=== PATIENT | male | born 1960 | race Caucasian/White ===

== ENCOUNTER → 2016-11-15 13:02 | Day surgery (SDC) | payer MEDICARE ==
--- NOTE | 2016-11-13 10:38 | HP ---
CC: Justo Fair MD, [facility]; Dr. Castro PREOPERATIVE HISTORY AND PHYSICAL: DATE OF PREOPERATIVE HISTORY AND PHYSICAL EXAMINATION: , 11/09/16 DATE OF ADMISSION: 11/15/16 - This patient is scheduled for same day surgery by Dr. Fair on , 11/15/16. ATTENDING SURGEON: Justo Fair MD (dictated by Tyler Cole NP) CHIEF COMPLAINT: Abdominal pain. HISTORY OF PRESENT ILLNESS: The patient is a 55-year-old male referred to Dr. Fair from Dr. Castro with complaints of right upper quadrant abdominal pain for approximately 2 to 3 months. After he ea ts, the pain is worse and he describes it as aching. It is not associated with any specific foods. He denies any nausea or vomiting, or change in the color of urine or stool. He denies any dysuria or change in bowel habits, or significant weight loss. Dr. Fair has examined the patient and revie wed diagnostic studies including LFTs which are within normal limits. The patient underwent a CAT s can of the abdomen and pelvis with p.o. and IV contrast which revealed fatty infiltration of the alex er, but a normal-appearing gallbladder and a small umbilical hernia. The patient underwent ultrasou nd of the gallbladder which revealed cholelithiasis; and, therefore, Dr. Fair has recommended lapar oscopic cholecystectomy as well as primary open umbilical hernia repair as a same day surgery proced ure. Dr. Fair discussed the nature of the surgical procedure, the relevant risks and benefits, and today I reviewed the typical same day surgery hospitalization as well as the postoperative care and recovery. The patient has had a chance to ask questions and stated that he understands the informa tion, and he will sign surgical consent on the day of surgery. PAST MEDICAL HISTORY: Significant for chronic neck and back pain. PAST SURGICAL HISTORY: Bilateral inguinal hernia repair 35 years ago and lumbar surgery in 1987. MEDICATIONS: 1. Meclizine 12.5 mg p.o. q.8 p.r.n. 2. Diazepam 5 mg at bedtime as needed. 3. Acetaminophen over the counter as needed for pain. 4. Levitra 10 mg one tablet as needed. ALLERGIES: No known drug allergies. FAMILY HISTORY: No known anesthesia complications, bleeding tendencies, or clotting disorders. SOCIAL HISTORY: He is . He smokes a pack of cigarettes per day. He denies alcohol use or o ther substance abuse. He is on disability. REVIEW OF SYSTEMS: He denies any chest pain, pressure, or palpitations. He denies any history of d eep vein thrombosis or pulmonary embolism. He denies any shortness of breath; he smokes a pack of c igarettes per day. He denies any previous anesthesia complications. He denies any other gastrointe stinal complaints other than described in history of present illness. He denies any dysuria. He de nies any bleeding tendencies, and has never received blood transfusion. PHYSICAL EXAMINATION GENERAL SURVEY: The patient is a 55-year-old male, slender, well developed, in no acute distress. VITAL SIGNS: Height 67 inches, weight 145 pounds, body mass index 22.7, blood pressure 120/66, puls e 80 and regular, respiratory rate 16, temperature 98.5 tympanic. SKIN: Warm, dry, anicteric. HEENT: Benign. Anicteric sclerae. NECK: No cervical lymphadenopathy. Limited range of motion secondary to chronic neck pain and asso ciated osteoarthritis. BACK: No CVA tenderness. LUNGS: Breath sounds bilaterally clear and equal. HEART: Regular rate and rhythm. No murmurs or rubs. ABDOMEN: Well-healed surgical scars bilateral inguinal region; minimal right upper quadrant tendern ess. Negative Dumont sign, no guarding, no organomegaly. Small umbilical hernia is appreciated. I nguinal exam as done by Dr. Fair revealed recurrent left inguinal hernia and recurrent right inguin al hernia. GENITALIA: As examined by Dr. Fair, revealed normal testicles without evidence of scrotal hernia o r masses. RECTAL: Deferred. EXTREMITIES: Warm without edema or skin ulcerations. NEUROLOGIC: Alert and oriented x3. Steady gait. IMPRESSION: 1. Symptomatic cholelithiasis. 2. Umbilical hernia without obstruction or gangrene. PLAN: Same day surgery admission to Dr. Fair's service on 11/15/16 for laparoscopic cholecystectom y and primary open umbilical hernia repair. TYLER COLE, ULTRASOUND SPECIALIST [id number]/[facility] #: [id number]
[~2016-11-15 13:02] MED LIST: Buffered Lidocaine 1% SYR 3ML* 3 ML/SYR SYRINGE INTRADERM ONE; Buffered Lidocaine 1% SYR 3ML* 3 ML/SYR SYRINGE ONE; Bupivacaine 0.25% EPI 200,000* 30 ML SDV ONE; Dexamethasone TAB* 4 MG ONE; Dexamethasone TAB* 4 MG PO ONE; Famotidine IV* 10 MG/ML 2 ML (20 mg) IV ONE; Famotidine IV* 10 MG/ML 2 ML (20 mg) ONE; Flumazenil* 0.1 MG/ML 5 ML MDV ONE; Glycopyrrolate IV* 0.2 MG/ML 1 ML VIAL ONE; KETAMINE HCL* 50 MG/ML 10 ML VIAL ONE; Midazolam* 1 MG/ML 5 ML VIAL (5 MG) ONE; Morphine INJ* 10 MG/ML 1 ML CARPUJECT IV PRN; Morphine INJ* 10 MG/ML 1 ML CARPUJECT ONE; Morphine INJ* 2 MG/ML 1 ML CARPUJECT IV PRN; Ondansetron INJ* 2 MG/ML VIAL ONE; PROCHLORPERAZINE INJ 5 MG/ML 2 ML VIAL IV PRN; PROCHLORPERAZINE INJ 5 MG/ML 2 ML VIAL ONE; Propofol* 10 MG/ML 20 ML BTL IV PUSH ONE; ceFAZolin 2 GM PREMIX (*) 2 GM/50 ML BAG IVPB ONE; fentaNYL* 50 MCG/ML 2 ML VIAL (100 MCG VIAL) IV PRN; fentaNYL* 50 MCG/ML 2 ML VIAL (100 MCG VIAL) ONE; oxyCODONE/Acetamin 5/325 MG* TAB ONE; oxyCODONE/Acetamin 5/325 MG* TAB PO PRN
--- NOTE | 2016-11-15 17:55 | SURGPN ---
Brief Operative Note - Surgery Procedures: Pre-OP Diagnoses: chronic cholecystitis, ventral hernia Post-op Diagnosis: same Procedure: Laparoscopic cholecystectomy, primary repair of ventral hernia Surgeon: Manjula Asst: Enma Clemonsthenallelya: HOLDEN Enoree EBL: minimal IVF: 1200ccLR Specimen: gallbladder Drains: none
[2016-11-15 19:19] VITALS: BP 121/77
--- NOTE | 2016-11-15 23:42 | OP ---
DATE OF OPERATION: 11/15/16 - [facility] DATE OF : 62 SURGEON: Justo Fair MD [employer] COMPENSATION CLAIMS EXAMINER: DOMINGO Quach ANESTHESIOLOGIST: Dr. Arteaga. ANESTHESIA: General. PRE-OP DIAGNOSES: Chronic cholecystitis and ventral hernia. POST-OP DIAGNOSES: Chronic cholecystitis and ventral hernia. OPERATIVE PROCEDURE: Laparoscopic cholecystectomy and open primary repair of ventral hernia. ESTIMATED BLOOD LOSS: Minimal. FLUIDS: 1200 cc of crystalloid fluid given. SPECIMEN: Gallbladder. DRAINS: None. COUNTS: Lap pad count and instrument count correct at the end of the procedure. DESCRIPTION OF PROCEDURE: The patient was identified in the preoperative area, marked and consent signed. He was brought back to the operating room, placed on the operating table in supine position. Preoperative antibiotics were given. Sequential devices were placed on bilateral lower extremity. General anesthesia was induced and the patient's abdomen was prepped and draped in the standard surgical fashion. A time-out was performed. A supraumbilical incision was made overlying the hernia. This was dissected free around the entire neck of the hernia, which appeared to be approximately 2 cm. The sac was entered and contents were identified. These were consistent with omentum. This was pushed back into the abdomen and a 12-mm port was then placed into the abdomen, which was allowed to insufflate to a pressure of 15 mmHg. The patient tolerated the insufflation well. Laparoscope was inserted through this and additional trocars were placed in the following position, a 12- mm in the subxiphoid and two 5-mm along the right costal margin. Table was repositioned and the fundus of the gallbladder was identified. This was retracted anteriorly. The liver was large and the gallbladder was as well. We were able to take the peritoneal attachments off the medial aspect of the gallbladder and off the lateral aspect. Node of Calot was identified. This was peeled down posteriorly. We never did appreciate the common bile duct, but the cystic duct was long and isolated. However, we continued our dissection posteriorly just to ensure that we were in the right plane. The gallbladder was bulbous and somewhat intrahepatic. The cystic duct was isolated. This was doubly clipped and ligated, and we dissected more of the body of the gallbladder at the posterior aspect. Next, the cystic duct was isolated. Decision was made to triply clip and ligate this. This was without difficulty and the gallbladder was then removed from the liver bed and placed in an endoscopic retrieval bag, placed over the liver. Suction irrigation was then used. We did open the gallbladder with small pin hole and only bile was expressed, no stones. We irrigated and suctioned out all this fluid. Next, the camera was shifted to lateral port and the gallbladder was brought out through the periumbilical port site. Next, the abdomen was allowed to collapse. The ventral defect was again isolated and 3 interrupted 0 Surgipro sutures were utilized to close this taking full thickness bites. The abdomen was allowed to insufflate again and camera was placed to ensure that we did not take any intraabdominal contents. Hemostasis was excellent. There had been no bile or bleeding at the cystic duct stump or cystic artery stump earlier and then the abdomen was allowed to collapse one more time. Trocars were removed and all 4 skin incisions were reapproximated with 4-0 Monocryl subcuticular sutures followed by Steri-Strips and sterile dressing. The patient tolerated the procedure well, was woken up in the OR, and transferred to the PACU in stable condition. CC: Dr. Castro; [facility] * [id number]/[facility] #: [id number] MTDZoe
== END | disposition home or self-care (01) ==
LOC: OR 13:02
PROVIDERS: ATTEND Surgery
DX: K80.10 Calculus of gallbladder with chronic cholecystitis without obstruction (principal); K43.9 Ventral hernia without obstruction or gangrene; F17.210 Nicotine dependence, cigarettes, uncomplicated
CPT/HCPCS: 88304; A9270-GY; J0690; J0780; J2250; J2270; J2405; J2704; J3010; J8540

== ENCOUNTER → 2017-01-03 07:38 | Day surgery (SDC) | payer MEDICARE ==
[~2017-01-03 07:38] MED LIST changes: +Acetaminophen IV 1GM/100ML * 100 ML IVPB ONE; +Acetaminophen IV 1GM/100ML * 100 ML ONE; -Buffered Lidocaine 1% SYR 3ML* 3 ML/SYR SYRINGE ONE; +Dexamethasone IV* 4 MG/ML 1 ML (4 MG) ONE; -Dexamethasone TAB* 4 MG ONE; -Dexamethasone TAB* 4 MG PO ONE; +DiMENhydriNATE IV* 50 MG/ML VIAL IV PUSH PRN; -Flumazenil* 0.1 MG/ML 5 ML MDV ONE; -Glycopyrrolate IV* 0.2 MG/ML 1 ML VIAL ONE; +HYDROmorphone INJ* 1 MG/ML CARPUJECT SYRINGE IV SLOW PU ONE; +HYDROmorphone INJ* 1 MG/ML CARPUJECT SYRINGE ONE; -KETAMINE HCL* 50 MG/ML 10 ML VIAL ONE; +Ketorolac INJ* 30 MG/ML 1 ML VIAL ONE; +Lidocaine 2% PF * 5 ML VIAL ONE; -Morphine INJ* 10 MG/ML 1 ML CARPUJECT IV PRN; -Morphine INJ* 10 MG/ML 1 ML CARPUJECT ONE; -Morphine INJ* 2 MG/ML 1 ML CARPUJECT IV PRN; -PROCHLORPERAZINE INJ 5 MG/ML 2 ML VIAL IV PRN; -PROCHLORPERAZINE INJ 5 MG/ML 2 ML VIAL ONE; +Rocuronium* 10 MG/ML VIAL ONE; +Succinylcholine* 20 MG/ML 10 ML VIAL ONE; -fentaNYL* 50 MCG/ML 2 ML VIAL (100 MCG VIAL) IV PRN; +oxyCODONE TAB* 5 MG TAB ONE; -oxyCODONE/Acetamin 5/325 MG* TAB ONE; -oxyCODONE/Acetamin 5/325 MG* TAB PO PRN
--- NOTE | 2017-01-03 10:27 | SURGPN ---
Brief Operative Note - Surgery Procedures: Pre-OP Diagnoses: Bilateral inguinal hernia Post-op Diagnosis: same Procedure: Laparoscopic bilateral hernia repair with mesh- recurrent Surgeon: Manjula Asst: Enma Anethesia: HOLDEN Kaplan EBL: minimal IVF: 1300cc LR Specimen: none Drains: none
[2017-01-03] MEDS: HYDROmorphone INJ* 1 MG/ML CARPUJECT SYRINGE IV PRN ×5 (10:52→11:13)
[2017-01-03] MEDS: oxyCODONE TAB* 5 MG TAB PO PRN ×2 (11:13→11:22)
[2017-01-03 12:16] VITALS: BP 114/69
--- NOTE | 2017-01-04 01:38 | OP ---
DATE OF OPERATION: 01/03/17 - [facility] DATE OF : 62 SURGEON: Justo Fair MD LENS GRINDER: DOMINGO Burgos ANESTHESIOLOGIST: Dr. Kaplan. ANESTHESIA: General. PRE-OP DIAGNOSIS: Recurrent bilateral inguinal hernias. POST-OP DIAGNOSIS: Recurrent bilateral inguinal hernias. OPERATIVE PROCEDURE: Laparoscopic bilateral inguinal hernia repair with mesh. BLOOD LOSS: Minimal. FLUIDS: 1300 cc of crystalloid fluid given. DRAINS: None. COUNTS: Lap pad count, instrument count correct at the end of the procedure. DESCRIPTION OF PROCEDURE: Mr. Ortiz was identified in the preoperative area, marked, and brought to the operating room, placed in the operating table in supine position. Preoperative antibiotics had been given. Sequential devices were placed on bilateral lower extremities. General anesthesia was induced. The patient's abdomen was prepped and draped in standard surgical fashion and time-out was performed. An infraumbilical incision was made. This was deepened down to the rectus pillar on the left, which was incised and the pillar retracted laterally and entry into the preperitoneal space was made. Finger dissection was utilized onto the pubic symphysis clearing away the preperitoneal plane and a 12-mm trocar was then inserted. The preperitoneal plane was then allowed to insufflate to a pressure of 12 mmHg. The patient tolerated the insufflation well. Laparoscope was inserted through this and there was some blunt dissection carried out with a camera to open up this space. Additional 5 mm trocar was then placed in the lower midline and attention was then turned towards the pubic symphysis. This was cleared off along with the Jus's ligament on the right. The epigastric vessels were identified and maintained anteriorly. A large direct hernia was identified. This had a crossing vessel that did not appear to be the epigastric vessel but rather a branch off this. This was maintained. The dissection was carried out on either side of this vessel to reduce the hernia. Attention was then turned towards the lateral aspect. This was gently swept and Bogros space was opened up. In doing this, we did cause a rent in the peritoneum. This was clipped with 5 mm clip detective sergeant for continuity. The spermatic structures were identified and kept safely from dissection. We did clear off a small area of peritoneum that extended into this portion of the indirect space. The femoral area space was free of any defect. The external iliacs were identified. Attention was then turned towards the left side. Similar dissection was carried out and a direct hernia was again identified. We cleared off the Bogros space and again cleared off the peritoneum that was extended up towards the indirect space. Once this peritoneum was retracted posteriorly, attention was then towards placing meshes. The mesh was first placed on the right side. This was a Bard 3D max mesh, medium. It was tacked to just about pubic symphysis and also on Jus's ligament and also laterally as well as along the rectus muscle. It covered the full myopectineal orifice and we placed a similar mesh on the left side. The meshes showed no wrinkling and they were not taut either. The preperitoneal plane was allowed to collapse. Trocars were removed under direct vision. There was pneumoperitoneum and decision was made to perform a laparoscopy. Posterior fascia was cut and entry to the abdominal cavity was made. The blunt cannula was then inserted and the abdomen was allowed to insufflate to a pressure of 12 mmHg. The patient was placed in a Trendelenburg position. Review of the left inguinal space showed full coverage with peritoneum, we could see the mesh behind this and it showed no wrinkling. Review of the right side showed a small rent in the peritoneum that we closed with clip detective sergeant but it had extended somewhat exposing the mesh at a 1 cm space. A 5 mm trocar was then inserted through the same previous skin incisions and this peritoneum was reapproximated with 5-0 clip detective sergeant. The abdomen was allowed to collapse. The trocars were removed under direct vision. Posterior fascia was closed with 2-0 Polysorb suture and the anterior fascia closed with 0 Polysorb suture. The wound was irrigated and Marcaine injected and all 3 skin incisions were reapproximated with 4-0 Monocryl subcuticular sutures. Steri-strips and sterile dressings were applied. The patient tolerated the procedure well and was woken up in the OR and transferred to the PACU in stable condition. CC: Dr. Uli Castro; [facility]* [id number]/[facility] #: [id number] DOREEN
== END | disposition home or self-care (01) ==
LOC: OR 07:38
PROVIDERS: ATTEND Surgery
DX: K40.21 Bilateral inguinal hernia, without obstruction or gangrene, recurrent (principal); Z87.891 Personal history of nicotine dependence
CPT/HCPCS: A9270-GY; C1776; C1781; J0330; J0690; J1100; J1170; J1885; J2250; J2405; J2704; J3010

== ENCOUNTER 2017-01-16 10:45 | Emergency (ER) | payer MEDICARE ==
[2017-01-16] MEDS ORDERED: Ibuprofen TAB* 600 MG PO ONE (12:51)
[2017-01-16] MEDS ORDERED: HYDROcodone/ACETAMIN 5-325 MG* 1 TAB PO ONE (12:51)
--- NOTE | 2017-01-16 13:15 | RAD ---
HISTORY: Pain erythema of left midfoot COMPARISONS: None VIEWS: 3, Frontal, lateral, and oblique views of the left foot FINDINGS: BONE DENSITY: Normal. BONES: There is no displaced fracture. JOINTS: There is no arthropathy. ALIGNMENT: There is no dislocation. SOFT TISSUES: Unremarkable. OTHER FINDINGS: None. IMPRESSION: NO ACUTE OSSEOUS INJURY. IF SYMPTOMS PERSIST, RECOMMEND REPEAT IMAGING.
[2017-01-16 13:25] LABS: Hematocrit 39 % (42-52); Hemoglobin 13.1 g/dl (14.0-18.0); Mean Corpuscular HGB Conc 34 g/dl (31-36); Mean Corpuscular Hemoglobin 30 pg (27-31); Mean Corpuscular Volume 88 fL (80-94); Mean Platelet Volume 7 um3 (7.4-10.4); Red Blood Count 4.41 10^6/ul (4.0-5.4); Red Cell Distribution Width 12 % (10.5-15); White Blood Count 10.2 10^3/ul (3.5-10.8)
[2017-01-16 13:45] LABS: Albumin 3.8 g/dL (3.2-5.2); BUN/Creatinine Ratio 17.7 (8-20); C Reactive Protein 27.07 mg/L (< 5.00); Calcium 8.9 mg/dL (8.6-10.3); EGFR African American 104.6 (>60); EGFR Non-African American 81.3 (>60); Globulin 2.8 g/dL (2-4); Potassium 4.4 mmol/L (3.5-5.0); Total Bilirubin 0.5 mg/dL (0.2-1.0); Total Protein 6.6 g/dL (6.4-8.9); Uric Acid 3.9 mg/dL (4.4-7.6)
--- NOTE | 2017-01-16 14:18 | ED ---
Ayaan Raymond Billy, scribed for Bradford Llamas MD on 01/16/17 at 1246 . Lower Extremity - HPI Summary HPI Summary: Patient is a 56 year-old male coming to [facility] for evaluation of left foot pain. The pain, swelling, and redness if located over the dorsum of the left foot; pain severity is 8/10. He reports that the symptoms began last night. Pain is worse with movement of the toes. He has tried resting and elevating the foot as well as applying heat and ice, without any improvement. Denies any pain in the left calf or knee. Denies any known injury or trauma. Patient had a hernia repair surgery last week. Patient tends to walk around the house without shoes. Denies history of gout. - History of Current Complaint Chief Complaint: EDExtremityLower Stated Complaint: SURGERY LAST WEEK , FOOT NOW SWELLING AND RED Time Seen by Provider: 01/16/17 12:36 Hx Obtained From: Patient Mechanism Of Injury: Unknown Onset of Pain: Hours Severity Initially: Moderate Severity Currently: Moderate Pain Intensity: 8 Pain Scale Used: 0-10 Numeric Timing: Constant Location: Is Discrete @ - dorsum of left foot Associated Signs And Symptoms: Positive: Swelling, Redness Aggravating Factor(s): Movement Alleviating Factor(s): Nothing Able to Bear Weight: Yes - Allergies/Home Medications Allergies/Adverse Reactions: Allergies Allergy/AdvReac Type Severity Reaction Status Date / Time No Known Allergies Allergy Verified 01/03/17 07:43 PMH/Surg Hx/FS Hx/Imm Hx Endocrine/Hematology History: Denies: Hx Diabetes Cardiovascular History: Denies: Hx Hypertension, Other Cardiovascular Problems/Disorders Respiratory History: Denies: Other Respiratory Problems/Disorders GI History: Reports: Hx Hiatal Hernia Denies: Other GI Disorders Musculoskeletal History: Reports: Hx Arthritis - all over Denies: Other Musculoskeletal History Sensory History: Reports: Hx Contacts or Glasses - glasses Denies: Hx Hearing Aid Opthamlomology History: Reports: Hx Contacts or Glasses - glasses Neurological History: Denies: Other Neuro Impairments/Disorders - Surgical History Surgery Procedure, Year, and Place: Bilat Inguinal hernias repairs 25-30 years ago. 2 herniated disc removed and bone from hip fused in spine [id number]. eye surgery as a child. hital hernia, gallbladder, 11/2016, [facility] Hx Anesthesia Reactions: No Infectious Disease History: No Infectious Disease History: Denies: Traveled Outside the [place] in Last 30 Days - Family History Family History: No family history of malignant hypertherima or anesthesia reaction. - Social History Alcohol Use: None Substance Use Type: Reports: None Smoking Status (MU): Former Smoker Amount Used/How Often: 1 ppd Have You Smoked in the Last Year: Yes Review of Systems Negative: Fever Positive: Other - left foot pain and swelling All Other Systems Reviewed And Are Negative: Yes Physical Exam Triage Information Reviewed: Yes Vital Signs On Initial Exam: Initial Vitals Temp Pulse Resp BP Pulse Ox 98.1 F 77 18 119/59 99 01/16/17 10:54 01/16/17 10:54 01/16/17 10:54 01/16/17 10:54 01/16/17 10:54 Vital Signs Reviewed: Yes Appearance: Positive: Well-Appearing, No Pain Distress Skin: Positive: Warm, Erythema @ - dorsum of the left foot Head/Face: Positive: Normal Head/Face Inspection Eyes: Positive: EOMI, HUNTER Neck: Positive: Supple, Nontender Respiratory/Lung Sounds: Positive: Clear to Auscultation, Breath Sounds Present Cardiovascular: Positive: RRR, Pulses are Symmetrical in both Upper and Lower Extremities Abdomen Description: Positive: Nontender, Soft Musculoskeletal: Positive: Strength/ROM Intact, Pain @ - Pain in the plantar surface of foot and with active ROM. No pain in the left calf, behind the knee, or in the upper leg. Neurological: Positive: Normal, Sensory/Motor Intact, Alert, Oriented to Person Place, Time Psychiatric: Positive: Affect/Mood Appropriate Diagnostics - Vital Signs Vital Signs Temp Pulse Resp BP Pulse Ox 01/16/17 10:54 98.1 F 77 18 119/59 99 - Laboratory Lab Results: Lab Results 01/16/17 01/16/17 01/16/17 Range/Units 13:14 13:14 13:14 WBC 10.2 (3.5-10.8) 10^3/ul RBC 4.41 (4.0-5.4) 10^6/ul Hgb 13.1 L (14.0-18.0) g/dl Hct 39 L (42-52) % MCV 88 (80-94) fL MCH 30 (27-31) pg MCHC 34 (31-36) g/dl RDW 12 (10.5-15) % Plt Count 175 (150-450) 10^3/ul MPV 7 L (7.4-10.4) um3 Neut % (Auto) 68.6 (38-83) % Lymph % (Auto) 18.2 L (25-47) % Upton % (Auto) 11.5 H (1-9) % Eos % (Auto) 1.1 (0-6) % Baso % (Auto) 0.6 (0-2) % Absolute Neuts (auto) 7.0 (1.5-7.7) 10^3/ul Absolute Lymphs (auto) 1.9 (1.0-4.8) 10^3/ul Absolute Monos (auto) 1.2 H (0-0.8) 10^3/ul Absolute Eos (auto) 0.1 (0-0.6) 10^3/ul Absolute Basos (auto) 0.1 (0-0.2) 10^3/ul Absolute Nucleated RBC 0 10^3/ul Nucleated RBC % 0 INR (Anticoag Therapy) 0.94 (0.89-1.11) APTT 30.4 (26.0-36.3) seconds Sodium 136 (133-145) mmol/L Potassium 4.4 (3.5-5.0) mmol/L Chloride 103 (101-111) mmol/L Carbon Dioxide 30 (22-32) mmol/L Anion Gap 3 (2-11) mmol/L BUN 17 (6-24) mg/dL Creatinine 0.96 (0.67-1.17) mg/dL Est GFR ( Amer) 104.6 (>60) Est GFR (Non-Af Amer) 81.3 (>60) BUN/Creatinine Ratio 17.7 (8-20) Glucose 98 (70-100) mg/dL Lactic Acid (0.5-2.0) mmol/L Uric Acid 3.9 L (4.4-7.6) mg/dL Calcium 8.9 (8.6-10.3) mg/dL Total Bilirubin 0.50 (0.2-1.0) mg/dL AST 11 L (13-39) U/L ALT 7 (7-52) U/L Alkaline Phosphatase 73 (34-104) U/L C-Reactive Protein 27.07 H (< 5.00) mg/L Total Protein 6.6 (6.4-8.9) g/dL Albumin 3.8 (3.2-5.2) g/dL Globulin 2.8 (2-4) g/dL Albumin/Globulin Ratio 1.4 (1-3) 03//17 Range/Units 13:14 WBC (3.5-10.8) 10^3/ul RBC (4.0-5.4) 10^6/ul Hgb (14.0-18.0) g/dl Hct (42-52) % MCV (80-94) fL MCH (27-31) pg MCHC (31-36) g/dl RDW (10.5-15) % Plt Count (150-450) 10^3/ul MPV (7.4-10.4) um3 Neut % (Auto) (38-83) % Lymph % (Auto) (25-47) % Upton % (Auto) (1-9) % Eos % (Auto) (0-6) % Baso % (Auto) (0-2) % Absolute Neuts (auto) (1.5-7.7) 10^3/ul Absolute Lymphs (auto) (1.0-4.8) 10^3/ul Absolute Monos (auto) (0-0.8) 10^3/ul Absolute Eos (auto) (0-0.6) 10^3/ul Absolute Basos (auto) (0-0.2) 10^3/ul Absolute Nucleated RBC 10^3/ul Nucleated RBC % INR (Anticoag Therapy) (0.89-1.11) APTT (26.0-36.3) seconds Sodium (133-145) mmol/L Potassium (3.5-5.0) mmol/L Chloride (101-111) mmol/L Carbon Dioxide (22-32) mmol/L Anion Gap (2-11) mmol/L BUN (6-24) mg/dL Creatinine (0.67-1.17) mg/dL Est GFR ( Amer) (>60) Est GFR (Non-Af Amer) (>60) BUN/Creatinine Ratio (8-20) Glucose (70-100) mg/dL Lactic Acid 0.6 (0.5-2.0) mmol/L Uric Acid (4.4-7.6) mg/dL Calcium (8.6-10.3) mg/dL Total Bilirubin (0.2-1.0) mg/dL AST (13-39) U/L ALT (7-52) U/L Alkaline Phosphatase (34-104) U/L C-Reactive Protein (< 5.00) mg/L Total Protein (6.4-8.9) g/dL Albumin (3.2-5.2) g/dL Globulin (2-4) g/dL Albumin/Globulin Ratio (1-3) Result Diagrams: 01/16/17 13:14 01/16/17 13:14 Lab Statement: Any lab studies that have been ordered have been reviewed, and results considered in the medical decision making process. - Radiology Left Foot X-ray Xray Interpretation: No Acute Changes Radiology Interpretation Completed By: Radiologist Re-Evaluation - Re-Evaluation First Eval Re-Evaluation Time: 14:06 Change: Improved Lower Extremity Course/Dx - Course Assessment/Plan: DISCUSSED RESULTS IN ED. WILLTREAT INFLAMMATORY PROCESS. RX KEFLEX AND NORCO. F/U PMD; RETURN IF WORSE. DISCHARGE HOME STABLE. - Diagnoses Provider Diagnoses: Foot swelling, Foot pain, Foot erythema Discharge - Discharge Plan Condition: Stable Disposition: HOME Prescriptions: Cephalexin CAP* [Keflex CAP*] 500 mg PO QID #40 cap HYDROcodone/ACETAMIN 5-325 MG* [Lowell 5-325 TAB*] 1 tab PO Q4H PRN #20 tab MDD 6 PRN Reason: Pain Referrals: Josh Castro MD [Primary Care Provider] - Additional Instructions: FOLLOW UP WITH YOUR DOCTOR. THE REDNESS AND SWELLING OF YOUR LEFT FOOT WILL BE TREATED AN INFLAMMATORY PROCESS. POSSIBLE CAUSES INCLUDE TENDON STRAIN AND INFECTION. WEAR ARCH SUPPORTS. ICE AND ELEVATE. IBUPROFEN 600MG EVERY 6 HOURS WITH FOOD. KEFLEX (ANTIBIOTIC) DIRECTED. RETURN TO THE EMERGENCY DEPARTMENT FOR ANY WORSENING OF YOUR CONDITION; PAIN, FEVER, CALF PAIN, YOU FEEL ILL OR QUESTIONS OR CONCERNS. The documentation as recorded by the Ayaan cline Billy accurately reflects the service I personally performed and the decisions made by , Bradford Llamas MD.
[2017-01-16] MEDS ORDERED: Cephalexin CAP* 500 MG PO ONE (14:19)
[2017-01-16 14:37] VITALS: BP 116/62
== END 2017-01-16 14:34 | disposition home or self-care (01) ==
LOC: ED 10:45
DX: M79.672 Pain in left foot (principal); L53.9 Erythematous condition, unspecified; R60.0 Localized edema; Z87.891 Personal history of nicotine dependence
CPT/HCPCS: 36415; 80053; 83605; 84550; 85025; 85610; 85730; 86140; 99282; A9270-GY

== ENCOUNTER 2018-08-05 16:00 | Emergency (ER) | payer MEDICARE ==
--- OUTSIDE RECORDS SUMMARY | 2018-08-05 16:30 | XMS REPORT | Continuity of Care Document ---
:1960 External Reference #:[id number] Author Name [facility] Address [address] [place] [address] Care Team Providers Name Role Phone Josh Castro MD Care Team Information [employer] Unavailable Josh Csatro MD Primary Care Physician Unavailable Payers Type Date Identification Numbers Payment Provider Subscriber Policy Number: [id number] Medicare Kendy Ortiz PayID: [id number] [address] [place] [address] Advance Directives Description No Information Available Problems Description No Information Family History Date Family Member(s) Problem(s) Comments Father due to Stroke () - 81 Mother 75 First Son 24 Second Son 21 First Daughter 26 Social History Type Date Description Comments Sex Unknown Marital Status Legal Status: ETOH Use Denies alcohol use Tobacco Use Start: Unknown Heavy tobacco smoker (more than 10 cigarettes/day) Smoking Status Reviewed: 07/26/18 Heavy tobacco smoker (more than 10 cigarettes/day) Allergies, Adverse Reactions, Alerts Description No Known Drug Allergies Medications Medication Date Status Form Strength Qnty SIG Indications Ordering Provider Cyclobenzaprine Active Tablets 5mg 90tabs 1 tab by M50.30 Matthew , HCL 018 mouth Ahmad M., three M.D. times a day as needed G47.00 M54.5 Zofran Odt 10/23/2017 Active Tablets 8mg 90tabs 1 by R11.0 Matthew, Dispers mouth Ahmad every 6 M., M.D. hours as needed Miralax 02/22/2018 - Hx Powder 3350NF 1020unit 1-2 caps K59.00 Matthew, 07/26/2018 s by mouth Ahmad every M., M.D. day Cyclobenzaprine 10/23/2017 - Hx Tablets 10mg 90tabs 1 tab by M50.30 Matthew, HCL 07/26/2018 mouth Ahmad three M. MEmmieD. times a day as needed for muscle spasms G47.00 M54.5 Meclizine HCL 10/15/2017 - Hx Tablets 25mg 90tabs 1 by mouth R42 Matthew , Ahmad 07/26/2018 every 8 hours Crystal Hughes. as needed Zofran 10/15/2017 - Hx Tablets 8mg 90tabs tab one by R11.0 Matthew, Ahmad 10/23/2017 mouth three M.EllenDEmmie times a day as needed Cialis 05/02/2016 - Hx Tablets 20mg 14tabs 1 tab by N40.1 Matthew, Ahmad 05/02/2016 mouth every M., M.DEmmie day as needed N52.9 Cialis 05/02/2016 - Hx Tablets 5mg 30tabs 1 tab by mouth N40.1 Matthew, Ahmad 05/04/2016 every day Susana Hughes N52.9 Diazepam 04/28/2016 - Hx Tablets 5mg 30tabs 1 tab by mouth M50.30 Matthew , Ahmad 10/23/2017 every night Susana Hughes Viagra 04/28/2016 - Hx Tablets 100mg 10tabs 1 tab by mouth N52.9 Matthew , mad 05/02/2016 every day as Susana Hughes needed Immunizations Description No Information Available Vital Signs Date Vital Result Comment 07/26/2018 4:04pm BP Systolic 110 mmHg BP Diastolic 72 mmHg Height 67 inches 5'7" Weight 159.00 lb BMI (Body Mass Index) 24.9 kg/m2 Heart Rate 86 /min Body Temperature 98.2 F Respiratory Rate 20 /min 02/22/2018 11:08am BP Systolic 118 mmHg BP Diastolic 60 mmHg Height 67 inches 5'7" Weight 164.00 lb BMI (Body Mass Index) 25.7 kg/m2 Heart Rate 89 /min Respiratory Rate 16 /min 10/23/2017 10:48am BP Systolic 124 mmHg BP Diastolic 62 mmHg Height 67 inches 5'7" Weight 164.00 lb BMI (Body Mass Index) 25.7 kg/m2 Heart Rate 99 /min Respiratory Rate 18 /min 10/15/2017 10:49am BP Systolic 124 mmHg BP Diastolic 62 mmHg Height 67 inches 5'7" Weight 159.00 lb BMI (Body Mass Index) 24.9 kg/m2 Heart Rate 80 /min Respiratory Rate 18 /min 11/23/2016 1:35pm BP Systolic 120 mmHg BP Diastolic 80 mmHg Height 67 inches 5'7" Weight 143.00 lb BMI (Body Mass Index) 22.4 kg/m2 Heart Rate 83 /min Respiratory Rate 18 /min 10/31/2016 2:04pm BP Systolic 130 mmHg BP Diastolic 68 mmHg Height 67 inches 5'7" Weight 149.00 lb BMI (Body Mass Index) 23.3 kg/m2 Heart Rate 67 /min Respiratory Rate 18 /min 05/23/2016 10:11am BP Systolic 128 mmHg BP Diastolic 64 mmHg Height 67 inches 5'7" Weight 144.00 lb BMI (Body Mass Index) 22.6 kg/m2 Heart Rate 74 /min Respiratory Rate 20 /min 05/12/2016 9:44am BP Systolic 118 mmHg BP Diastolic 64 mmHg Height 67 inches 5'7" Weight 141.00 lb BMI (Body Mass Index) 22.1 kg/m2 Heart Rate 74 /min Respiratory Rate 19 /min 04/28/2016 10:36am BP Systolic 112 mmHg BP Diastolic 66 mmHg Height 67 inches 5'7" Weight 148.00 lb BMI (Body Mass Index) 23.2 kg/m2 Heart Rate 84 /min Respiratory Rate 17 /min Results Test Date Facility Test Result H/L Range Note Laboratory test 04/02/2018 [facility] SEE RESULT 1, 2 finding BELOW Ua RFX Micro & 02/01/2018 [place] Urine Color YELLOW Yellow 3 Culture II Urine Clarity CLEAR Clear Urine Glucose - Dipstick NEGATIVE mg/dL Negative Urine Bilirubin - Dipstick NEGATIVE Negative Urine Ketone NEGATIVE mg/dL Negative Urine Specific Poston <=1.005 Low 1.010-1.030 Urine Blood NEGATIVE Negative Urine PH 6.0 Low 6.5-7.5 Urine Protein - Dipstick NEGATIVE mg/dL Negative Urine Urobilinogen - Dipstick 0.2 E.U./dL 0.2-1.0 Urine Nitrite - Dipstick NEGATIVE Negative Urine Leuk Esterase NEGATIVE Negative Source: URINE, CLEAN CAT <SEE NOTE> 4 Drugs Of Abuse-Urine Screen 02/01/2018 [place] Amphetamines (Urine) Negative 7 Barbiturates (Urine) Negative Benzodiazepines (Urine) Negative Cannabinoids (Urine) Negative Cocaine Metabolite (Urine) Negative Methadone (Urine) Negative Opiates (Urine) Negative Urine Cutoffs * 5 CBS W/Automated Diff 02/01/2018 [place] White Blood Count 8.0 K/uL 3.4- 10.5 Red Blood Count 5.07 M/uL 4.20-5.80 Hemoglobin 15.5 gm/dL 12.8-17.0 Hematocrit 45.6 % 38.0-48.0 Mean Cell Volume 89.9 fl 80.0-96.0 Mean Corpuscular HGB 30.6 pg 27.0-33.0 Mean Corpuscular HGB Conc 34.0 g/dL 31.7-36.0 Platelet Count 152 K/uL Low 155-360 Red Cell Distri Width SD 43.5 fl 36-51 Red Cell Distri Width %CV 13.4 % 11.6-15.8 Mean Platelet Volume 9.9 fL 6.6-10.6 Neut% 62.4 % 33.0-73.0 Lymph % 22.7 % 20.0-42.0 [place] % 12.7 % High 0.0-10.0 Eo% 1.8 % 0.0-6.6 Bas% 0.4 % 0.0-1.1 Neut# 4.97 K/uL 1.8-7.0 Lymph # 1.81 K/uL 1.0-4.0 [place] # 1.01 K/uL High 0.0-0.8 Eos # 0.14 K/uL 0.0-0.5 Baso # 0.03 K/uL 0.0-0.1 PSA Free And Total 11/23/2016 [facility] PSA Total 0.98 ng/mL <=3.5 6 PSA Free 0.5 ng/mL PSA Free/Total See Comment ratio 7 CBC Auto Diff 10/31/2016 [facility] White Blood Count 10.4 10^3/uL 3.5-10.8 Red Blood Count 5.02 10^6/uL 4.0-5.4 Hemoglobin 15.2 g/dL 14.0-18.0 Hematocrit 45 % 42-52 Mean Corpuscular Volume 90 fL 80-94 Mean Corpuscular Hemoglobin 30 pg 27-31 Mean Corpuscular HGB Conc 34 g/dL 31-36 Red Cell Distribution Width 13 % 10.5-15 Platelet Count 154 10^3/uL 150-450 Mean Platelet Volume 9 um3 7.4-10.4 Abs Neutrophils 7.7 10^3/uL 1.5-7.7 Abs Lymphocytes 1.8 10^3/uL 1.0-4.8 Abs Monocytes 0.6 10^3/uL 0-0.8 Abs Eosinophils 0.1 10^3/uL 0-0.6 Abs Basophils 0.1 10^3/uL 0-0.2 Abs Nucleated RBC 0 10^3/uL Granulocyte % 74.7 % 38-83 Lymphocyte % 17.2 % Low 25-47 Monocyte % 6.2 % 1-9 Eosinophil % 0.7 % 0-6 Basophil % 1.2 % 0-2 Nucleated Red Blood Cells % 0 Comp Metabolic Panel 10/31/2016 [facility] Sodium 139 mmol/L 133- 145 Potassium 4.2 mmol/L 3.5-5.0 Chloride 103 mmol/L 101-111 Co2 Carbon Dioxide 32 mmol/L 22-32 Anion Gap 4 mmol/L 2-11 Glucose 99 mg/dL 70-100 Blood Urea Nitrogen 11 mg/dL 6-24 Creatinine 1.06 mg/dL 0.67-1.17 BUN/Creatinine Ratio 10.4 8-20 Calcium 9.6 mg/dL 8.6-10.3 Total Protein 6.4 g/dL 6.4-8.9 Albumin 4.2 g/dL 3.2-5.2 Globulin 2.2 g/dL 2-4 Albumin/Globulin Ratio 1.9 1-3 Total Bilirubin 0.50 mg/dL 0.2-1.0 Alkaline Phosphatase 65 U/L 34-104 Alt 8 U/L 7-52 Ast 17 U/L 13-39 Egfr Non- 72.8 >60 Egfr 93.6 >60 8 Laboratory test finding 10/31/2016 [facility] Amylase 37 U/L 29-103 9 Lipase 11 U/L 11.0-82.0 10 Erythrocyte Sed Rate 10 mm/Hr 0-20 11 Laboratory test 05/12/2016 [facility] TSH (Thyroid 0.49 mcIU/mL 0.34 -5.60 12 finding Stim Horm) Vitamin D Total 25(Oh) 39.4 ng/mL 30-50 13 Lipid Profile 05/12/2016 [facility] Triglycerides 105 mg/dL 14 (Trig/Chol/HDL) Cholesterol 174 mg/dL 15 HDL Cholesterol 34.0 mg/dL 16 LDL Cholesterol 119 mg/dL 17 Comp Metabolic Panel 05/12/2016 [facility] Sodium 136 mmol/L 133- 145 Potassium 4.7 mmol/L 3.5-5.0 Chloride 103 mmol/L 101-111 Co2 Carbon Dioxide 29 mmol/L 22-32 Anion Gap 4 mmol/L 2-11 Glucose 81 mg/dL 70-100 Blood Urea Nitrogen 14 mg/dL 6-24 Creatinine 1.13 mg/dL 0.67-1.17 BUN/Creatinine Ratio 12.4 8-20 Calcium 9.0 mg/dL 8.6-10.3 Total Protein 6.5 g/dL 6.4-8.9 Albumin 4.0 g/dL 3.2-5.2 Globulin 2.5 g/dL 2-4 Albumin/Globulin Ratio 1.6 1-3 Total Bilirubin 0.50 mg/dL 0.2-1.0 Alkaline Phosphatase 67 U/L 34-104 Alt 6 U/L Low 7-52 Ast 14 U/L 13-39 Egfr Non- 67.6 >60 Egfr 87.0 >60 18 CBC Auto Diff 05/12/2016 [facility] White Blood Count 7.4 10^3/uL 3.5-10.8 Red Blood Count 5.16 10^6/uL 4.0-5.4 Hemoglobin 15.5 g/dL 14.0-18.0 Hematocrit 46 % 42-52 Mean Corpuscular Volume 90 fL 80-94 Mean Corpuscular Hemoglobin 30 pg 27-31 Mean Corpuscular HGB Conc 34 g/dL 31-36 Red Cell Distribution Width 13 % 10.5-15 Platelet Count 152 10^3/uL 150-450 Mean Platelet Volume 9 um3 7.4-10.4 Abs Neutrophils 4.6 10^3/uL 1.5-7.7 Abs Lymphocytes 1.9 10^3/uL 1.0-4.8 Abs Monocytes 0.7 10^3/uL 0-0.8 Abs Eosinophils 0.2 10^3/uL 0-0.6 Abs Basophils 0.1 10^3/uL 0-0.2 Abs Nucleated RBC 0.04 10^3/uL Granulocyte % 62.6 % 38-83 Lymphocyte % 25.2 % 25-47 Monocyte % 9.3 % High 1-9 Eosinophil % 2.1 % 0-6 Basophil % 0.8 % 0-2 Nucleated Red Blood Cells % 0.5 Laboratory test 05/12/2016 [facility] PSA Screening 0.821 ng/mL 0- 4.000 19 finding 1 [id number] 2 SEE RESULT BELOW Name: KENDY ORTIZ : [address]: Letty Ariza DO Acct: [id number] Unit: [id number] AGE: 57 Location: ENDOC Re04/02/18 SEX: M Status: DEP REF SPEC: [id number] ZHEN: 04/02/18-6935 [facility] DR: Letty Ariza DO REQ: [id number] RECD: [id number]/02/180863 STATUS: NAHOMI SAAVEDRA DR: Josh Castro MD _ SOURCE: SHEN CLOUD SPDESC: ORDERED: Clotest COMMENTS: [id number] Procedure Result Reported Site Clotest Final 04/03/18- 717 ML Clotest Negative * ML - Main Lab . END OF REPORT DEPARTMENT OF PATHOLOGY, [address] [place] [address] Forrest Escamilla M.D. Director [facility] # [id number] 3 ABD PAIN 4 URINE, CLEAN CATCH 5 URINE SPECIMENS ARE SCREENED AT THE LISTED CUTOFFS DRUG CLASS INITIAL TEST LEVEL Amphetamines 1000 ng/mL Barbiturates 200 ng/mL Benzodiazepines 200 ng/mL Cannabinoids 50 ng/mL Cocaine Metabolite 300 ng/mL Methadone 300 ng/mL Opiates 300 ng/mL Any PRESUMPTIVE POSITIVE findings are UNCONFIRMED. Confirmatory testing is suggested if findings are unexpected. Please contact laboratory if confirmatory testing is desired. SPECIMENS ARE HELD FOR 72 HOURS. 6 [id number] 7 Ratio not calculated because clinical usefulness is not defined except in range of total PSA 4.0-10.0 ng/mL. ADDITIONAL INFORMATION The testing method is an electrochemiluminescence assay manufactured by [employer] and performed on the Modular or Cristopher system. Values obtained with different assay methods or kits may be different and cannot be used interchangeably. Test results cannot be interpreted as absolute evidence for the presence or absence of malignant disease. Test Performed by: [place] [address] Equipment Maintenance Superintendent: Bradford Guallpa II, M.D., Ph.D. 8 Because ethnic data is not always readily available, this report includes an eGFR for both -Americans and non- Americans. The National Kidney Disease Education Program (NKDEP) does not endorse the use of the MDRD equation for patients that are not between the ages of 18 and 70, are , have extremes of body size, muscle mass, or nutritional status, or are non- or non-. According to the National Kidney Foundation, irrespective of diagnosis, the stage of the disease is based on the level of kidney function: Stage Description GFR(mL/min/1.73 m(2)) 1 Kidney damage with normal or decreased GFR 90 2 Kidney damage with mild decrease in GFR 60-89 3 Moderate decrease in GFR 30-59 4 Severe decrease in GFR 15-29 5 Kidney failure <15 (or dialysis) 9 [id number] 10 [id number] 11 [id number] 12 [id number] 13 [id number] 14 Desirable <150 Borderline high 150-199 High 200-499 Very High >500 15 Desirable <200 Borderline high 200-239 High >239 16 Low <40 Desirable: 40-60 High: >60 17 Desirable: <100 mg/dL Near Optimal: 100-129 mg/dL Borderline High: 130-159 mg/dL High: 160-189 mg/dL Very High: >189 mg/dL 18 Because ethnic data is not always readily available, this report includes an eGFR for both -Americans and non- Americans. The National Kidney Disease Education Program (NKDEP) does not endorse the use of the MDRD equation for patients that are not between the ages of 18 and 70, are , have extremes of body size, muscle mass, or nutritional status, or are non- or non-. According to the National Kidney Foundation, irrespective of diagnosis, the stage of the disease is based on the level of kidney function: Stage Description GFR(mL/min/1.73 m(2)) 1 Kidney damage with normal or decreased GFR 90 2 Kidney damage with mild decrease in GFR 60-89 3 Moderate decrease in GFR 30-59 4 Severe decrease in GFR 15-29 5 Kidney failure <15 (or dialysis) 19 Serum levels of PSA measured using the Cristian Andrew DXI Hybritech immunoassay should not be interpreted as absolute evidence of the presence or absence of disease. The PSA value should be used in conjunction with other pertinent clinical diagnostic procedures. The values obtained with different assay methods or kits cannot be used interchangeably. Procedures Description No Information Available Encounters Type Date Location Provider Dx Diagnosis Office Visit 07/26/2018 [facility] Flakita Velazquez44.9 Chronic obstructive 4:15p N.P. pulmonary disease, unspecified M15.9 Polyosteoarthritis, unspecified M54.5 Low back pain F17.210 Nicotine dependence, cigarettes, uncomplicated K40.21 Bilateral inguinal hernia, w/o obst or gangrene, recurrent L20.9 Atopic dermatitis, unspecified R06.02 Shortness of breath J30.9 Allergic rhinitis, unspecified H81.13 Benign paroxysmal vertigo, bilateral G43.009 Migraine w/o aura, not intractable, w/o status migrainosus G47.00 Insomnia, unspecified H53.30 Unspecified disorder of binocular vision K21.9 Gastro-esophageal reflux disease without esophagitis K30 Functional dyspepsia N40.1 Benign prostatic hyperplasia with lower urinary tract symp N52.9 Male erectile dysfunction, unspecified R35.1 Nocturia E78.2 Mixed hyperlipidemia Z90.49 Acquired absence of other specified parts of digestive tract K42.9 Umbilical hernia without obstruction or gangrene K40.01 Bilateral inguinal hernia, w obst, w/o gangrene, recurrent R42 Dizziness and giddiness R11.0 Nausea M50.30 Other cervical disc degeneration, unsp cervical region R10.84 Generalized abdominal pain K59.00 Constipation, unspecified D48.5 Neoplasm of uncertain behavior of skin Office Visit 02/22/2018 11:15a [facility] Josh Castro J44.9 Chronic obstructive MEmime MHoney. pulmonary disease, unspecified M15.9 Polyosteoarthritis, unspecified M54.5 Low back pain F17.210 Nicotine dependence, cigarettes, uncomplicated K40.21 Bilateral inguinal hernia, w/o obst or gangrene, recurrent L20.9 Atopic dermatitis, unspecified R06.02 Shortness of breath J30.9 Allergic rhinitis, unspecified H81.13 Benign paroxysmal vertigo, bilateral G43.009 Migraine w/o aura, not intractable, w/o status migrainosus G47.00 Insomnia, unspecified H53.30 Unspecified disorder of binocular vision K21.9 Gastro-esophageal reflux disease without esophagitis K30 Functional dyspepsia N40.1 Benign prostatic hyperplasia with lower urinary tract symp N52.9 Male erectile dysfunction, unspecified R35.1 Nocturia E78.2 Mixed hyperlipidemia Z90.49 Acquired absence of other specified parts of digestive tract K42.9 Umbilical hernia without obstruction or gangrene K40.01 Bilateral inguinal hernia, w obst, w/o gangrene, recurrent R42 Dizziness and giddiness R11.0 Nausea M50.30 Other cervical disc degeneration, unsp cervical region R10.84 Generalized abdominal pain K59.00 Constipation, unspecified Office Visit 10/23/2017 11:15a [facility] MatthewJosh vincent J44.9 Chronic obstructive M., M.D. pulmonary disease, unspecified M15.9 Polyosteoarthritis, unspecified M54.5 Low back pain F17.210 Nicotine dependence, cigarettes, uncomplicated K40.21 Bilateral inguinal hernia, w/o obst or gangrene, recurrent L20.9 Atopic dermatitis, unspecified R06.02 Shortness of breath J30.9 Allergic rhinitis, unspecified H81.13 Benign paroxysmal vertigo, bilateral G43.009 Migraine w/o aura, not intractable, w/o status migrainosus G47.00 Insomnia, unspecified H53.30 Unspecified disorder of binocular vision K21.9 Gastro-esophageal reflux disease without esophagitis K30 Functional dyspepsia N40.1 Benign prostatic hyperplasia with lower urinary tract symp N52.9 Male erectile dysfunction, unspecified R35.1 Nocturia E78.2 Mixed hyperlipidemia Z90.49 Acquired absence of other specified parts of digestive tract K42.9 Umbilical hernia without obstruction or gangrene K40.01 Bilateral inguinal hernia, w obst, w/o gangrene, recurrent R42 Dizziness and giddiness R11.0 Nausea M50.30 Other cervical disc degeneration, unsp cervical region Office Visit 10/15/2017 11:00a [facility] Guanako Cuellar INFUSION THERAPY NURSE M54.2 Cervicalgia M54.2 Cervicalgia J44.9 Chronic obstructive pulmonary disease, unspecified F17.210 Nicotine dependence, cigarettes, uncomplicated R42 Dizziness and giddiness J44.9 Chronic obstructive pulmonary disease, unspecified R11.0 Nausea R42 Dizziness and giddiness R11.0 Nausea Office Visit 11/23/2016 2:15p [facility] Matthew Soniayasmin K40.21 Bilateral inguinal M., M.D. hernia, w/o obst or gangrene, recurrent R10.11 Right upper quadrant pain R10.30 Lower abdominal pain, unspecified M54.2 Cervicalgia M54.5 Low back pain M15.9 Polyosteoarthritis, unspecified J44.9 Chronic obstructive pulmonary disease, unspecified F17.210 Nicotine dependence, cigarettes, uncomplicated L20.9 Atopic dermatitis, unspecified R06.02 Shortness of breath J30.9 Allergic rhinitis, unspecified H81.13 Benign paroxysmal vertigo, bilateral G43.009 Migraine w/o aura, not intractable, w/o status migrainosus G47.00 Insomnia, unspecified H53.30 Unspecified disorder of binocular vision K21.9 Gastro-esophageal reflux disease without esophagitis K30 Functional dyspepsia N40.1 Benign prostatic hyperplasia with lower urinary tract symp N52.9 Male erectile dysfunction, unspecified R35.1 Nocturia E78.2 Mixed hyperlipidemia Z90.49 Acquired absence of other specified parts of digestive tract K42.9 Umbilical hernia without obstruction or gangrene K40.01 Bilateral inguinal hernia, w obst, w/o gangrene, recurrent Office Visit 10/31/2016 2:15p [facility] Matthew, Soniayasmin K40.21 Bilateral inguinal M., M.D. hernia, w/o obst or gangrene, recurrent R10.11 Right upper quadrant pain R10.30 Lower abdominal pain, unspecified M54.2 Cervicalgia M54.5 Low back pain M15.9 Polyosteoarthritis, unspecified J44.9 Chronic obstructive pulmonary disease, unspecified F17.210 Nicotine dependence, cigarettes, uncomplicated L20.9 Atopic dermatitis, unspecified R06.02 Shortness of breath J30.9 Allergic rhinitis, unspecified H81.13 Benign paroxysmal vertigo, bilateral G43.009 Migraine w/o aura, not intractable, w/o status migrainosus G47.00 Insomnia, unspecified H53.30 Unspecified disorder of binocular vision K21.9 Gastro-esophageal reflux disease without esophagitis K30 Functional dyspepsia N40.1 Benign prostatic hyperplasia with lower urinary tract symp N52.9 Male erectile dysfunction, unspecified R35.1 Nocturia E78.2 Mixed hyperlipidemia Office Visit 05/23/2016 10:15a [facility] Josh Castro M.D. M54.2 Cervicalgia M54.5 Low back pain M15.9 Polyosteoarthritis, unspecified J44.9 Chronic obstructive pulmonary disease, unspecified F17.210 Nicotine dependence, cigarettes, uncomplicated L20.9 Atopic dermatitis, unspecified R06.02 Shortness of breath J30.9 Allergic rhinitis, unspecified H81.13 Benign paroxysmal vertigo, bilateral G43.009 Migraine w/o aura, not intractable, w/o status migrainosus G47.00 Insomnia, unspecified H53.30 Unspecified disorder of binocular vision K21.9 Gastro-esophageal reflux disease without esophagitis K30 Functional dyspepsia N40.1 Enlarged prostate with lower urinary tract symptoms N52.9 Male erectile dysfunction, unspecified R35.1 Nocturia E78.2 Mixed hyperlipidemia Office Visit 05/12/2016 10:00a [facility] Josh Castro M.D. M54.2 Cervicalgia M54.5 Low back pain M15.9 Polyosteoarthritis, unspecified J44.9 Chronic obstructive pulmonary disease, unspecified F17.210 Nicotine dependence, cigarettes, uncomplicated L20.9 Atopic dermatitis, unspecified R06.02 Shortness of breath J30.9 Allergic rhinitis, unspecified H81.13 Benign paroxysmal vertigo, bilateral G43.009 Migraine w/o aura, not intractable, w/o status migrainosus G47.00 Insomnia, unspecified H53.30 Unspecified disorder of binocular vision K21.9 Gastro-esophageal reflux disease without esophagitis K30 Functional dyspepsia N40.1 Enlarged prostate with lower urinary tract symptoms N52.9 Male erectile dysfunction, unspecified R35.1 Nocturia E78.2 Mixed hyperlipidemia Office Visit 04/28/2016 10:45a [facility] Josh aCstro M.D. M54.2 Cervicalgia M54.5 Low back pain M15.9 Polyosteoarthritis, unspecified J44.9 Chronic obstructive pulmonary disease, unspecified F17.210 Nicotine dependence, cigarettes, uncomplicated R06.02 Shortness of breath L20.9 Atopic dermatitis, unspecified J30.9 Allergic rhinitis, unspecified H81.13 Benign paroxysmal vertigo, bilateral G43.009 Migraine w/o aura, not intractable, w/o status migrainosus G47.00 Insomnia, unspecified H53.30 Unspecified disorder of binocular vision K21.9 Gastro-esophageal reflux disease without esophagitis K30 Functional dyspepsia N40.1 Enlarged prostate with lower urinary tract symptoms R35.1 Nocturia N52.9 Male erectile dysfunction, unspecified Z53.8 Procedure and treatment not carried out for other reasons Plan of Treatment 07/26/2018 - [facility] N.[facility].J44.9 Chronic obstructive pulmonary disease, unspecifiedComments:INCREASE PO FLUIDRESTSMOKING WZBDQLQCCG55.9 Polyosteoarthritis, unspecifiedComments:EXERCISE/HEAT/MESSAGETYLENOL OR MOTRIN PRNAVOID HEAVY LIFTINGWT LOSS DUR IVHBRZDZ78.5 Low back painNew Medication: Cyclobenzaprine HCL 5 mg - 1 tab by mouth three times a day as neededComments: EXERCISE/HEAT /MESSAGEAVOID HEAVY LIFTING WT LOSSTYLENOL OR MOTRIN PRN DUR WOAKSKQP67.210 Nicotine dependence, cigarettes, uncomplicatedComments:SMOKING CESSATION ZSZSLTHUBTGJ39.21 Bilateral inguinal hernia, without obstruction or gangrene, recurrentComments:OBSERVE USE HERNIA BELT AVOID HEAVY RZOSXIWL03.9 Atopic dermatitis, unspecifiedComments:SKIN CARE INSTRUCTIONS LOTION OR BABY OIL 2-3 APPLICATION PER DAYUSE MOISTURIZING SOAPAVOID PROLONGED WATER EXPOSUREAVOID USING HOT WATER IN OHIIAFN58.02 Shortness of breathComments: INCREASE PO FLUIDRESTSMOKING RQLIWTTSLM53.9 Allergic rhinitis, unspecifiedComments:INCREASE PO FLUID USE ANTIHISTAMINE PRN SECOND HAND SMOKING AVOIDANCE SMOKING ADUZRYRHAK59.13 Benign paroxysmal vertigo, bilateralComments: SAFETY SMOKING GXMZSJGGEM40.009 Migraine without aura, not intractable, without status migrainosusComments:TYLENOL OR MOTRIN PRNRELAXATION/AVOID XUILBDEVUU37.00 Insomnia, unspecifiedNew Medication:Cyclobenzaprine HCL 5 mg - 1 tab by mouth three times a day as neededComments:COUNCELLING AND REASSURANCE RELAXATION TECHNIQUES DISCUSSED COUNSELED RE: STRESSORS IN LIFE TYLENOLPM OR MOTRIN PM PRN DUR URXKPZZQ41.30 Unspecified disorder of binocular visionComments:USE GLASSES/CONTACTSF/U WITH NMTSKNABOFJWHS02.9 Gastro- esophageal reflux disease without esophagitisComments:AVOID CAFFEINE, ETOH AND SPICY FOODSTUMS OR MYLANTA PRN CALL WITH PROBLEMS OR CONCERNSSMOKING [id number] Functional dyspepsiaComments:AVOID CAFFEINE, ETOH AND SPICY FOODSTUMS OR MYLANTA PRN CALL WITH PROBLEMS OR CONCERNSSMOKING LJYJYXBYIH26.1 Benign prostatic hyperplasia with lower urinary tract symptomsComments:OBSERVE DISSCUSED [place] OPTIONS WITH WORSENING NJOEOIORL07.9 Male erectile dysfunction, unspecifiedComments:COUNCELLING AND TEACHING ON DIFEEERENT TREATMENT ZABVGZFV83.1 NocturiaComments:OBSERVE FOR NOW DISSCUSED TX OPTIONS WITH WORSENING [id number] Mixed hyperlipidemiaComments:DIET REVIEWED CONTINUE DIETWT LOSSF/U LAB FBWZ90.49 Acquired absence of other specified parts of digestive tractComments:NAESHLNG48.9 Umbilical hernia without obstruction or gangreneComments:STABLE ABDOMINAL BINDER PRNK40.01 Bilateral inguinal hernia, with obstruction, without gangrene, recurrentComments:RESOLVED S/P SURGICAL [id number] Dizziness and giddinessComments:SAFETY SMOKING UEGDSSUHLE48.0 NauseaComments:INCREASE PO FLUID SMALL SIPS OF FLUIDS AT A TIME SMALL FREQUENT MEALS F/U DIRECTED CALL IF YOU HAVE VOMITING OR WITH S/S OF [id number] Other cervical disc degeneration, unspecified cervical regionNew Medication:Cyclobenzaprine HCL 5 mg - 1 tab by mouth three times a day as neededComments:EXERCISE/HEAT /MESSAGEAVOID HEAVY LIFTING WT LOSSTYLENOL OR MOTRIN PRN DUR TLOTQHQW67.84 Generalized abdominal painComments:TYLENOL OR MOTRIN PRNINCREASE PO FLUIDLAXATIVE PRN F/U DIRECTEDF/U DIRECTEDReferral:Ermelinda Saravia MD, RhwnbrvkizgyyoqdB41.00 Constipation, unspecifiedComments:MOM OR MIRALAX PRNHIGH FIBER DIETINCREASE PO IQRTZU02.5 Neoplasm of uncertain behavior of skinNew Xrays:Ultrasound, Pelvic (Nonobstetric ); Complete, Ordered: 07/26/18
[2018-08-05] MEDS ORDERED: NS 0.9% 1000 ML* 1,000 ML IV ONE (16:48)
[2018-08-05] MEDS ORDERED: DiMENhydriNATE IV* 50 MG/ML VIAL IV PUSH ONE (16:51)
[2018-08-05 18:04] LABS: ABS Basophils 0.1 10^3/ul (0-0.2); ABS Eosinophils 0.1 10^3/ul (0-0.6); ABS Lymphocytes 1.6 10^3/ul (1.0-4.8); ABS Monocytes 0.6 10^3/ul (0-0.8); ABS Neutrophils 6.2 10^3/ul (1.5-7.7); ABS Nucleated RBC 0 10^3/ul; Eosinophil % 0.8 % (0-6); Hematocrit 47 % (42-52); Hemoglobin 15.8 g/dl (14.0-18.0); Lymphocyte % 19.1 % (25-47); Mean Corpuscular HGB Conc 34 g/dl (31-36); Mean Corpuscular Hemoglobin 30 pg (27-31); Mean Corpuscular Volume 87 fL (80-94); Mean Platelet Volume 8.2 um3 (7.4-10.4); Nucleated Red Blood Cells % 0.2; Platelet Count 165 10^3/ul (150-450); Red Blood Count 5.35 10^6/ul (4.00-5.40); Red Cell Distribution Width 13 % (10.5-15); White Blood Count 8.6 10^3/ul (3.5-10.8)
[2018-08-05 18:27] LABS: EGFR Non-African American 71.5 (>60)
--- NOTE | 2018-08-05 19:27 | ED ---
Dizziness - HPI Summary HPI Summary: A 57 y/o M presents to ED with c/o dizziness onset 1515 lasting approx 15 minutes. He is not experiencing dizziness at bedside. Pt was standing and then knelt to plug something in and experienced dizziness. Associated sx: nausea, occipital RECIO. Denies vision changes. He has a stiff neck per baseline. 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 Pt has been having recurring "dizzy spells" for past 6 months, dx: vertigo. Pt was seen by his PCP. Previously, he has taken Benadryl to no relief, Meclizine to mild relief. 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 Negative: Visual Changes - Allergies/Home Medications Allergies/Adverse Reactions: Allergies Allergy/AdvReac Type Severity Reaction Status Date / Time No Known Allergies Allergy Verified 04/02/18 15:21 PMH/Surg Hx/FS Hx/Imm Hx Previously Healthy: No Endocrine/Hematology History: Denies: Hx Diabetes Cardiovascular History: Denies: Hx Hypertension, Other Cardiovascular Problems/Disorders Respiratory History: Denies: Other Respiratory Problems/Disorders GI History: Reports: Hx Hiatal Hernia Denies: Other GI Disorders Musculoskeletal History: Reports: Hx Arthritis - all over Denies: Other Musculoskeletal History Sensory History: Reports: Hx Contacts or Glasses - glasses Denies: Hx Hearing Aid Opthamlomology History: Reports: Hx Contacts or Glasses - glasses EENT History: Reports: Other - vertigo - Surgical History Surgery Procedure, Year, and Place: Bilat Inguinal hernias repairs 25-30 years ago. 2 herniated disc removed and bone from hip fused in spine [id number]. eye surgery as a child. hital hernia, gallbladder, 11/2016, [facility] [place] Hx Anesthesia Reactions: No Infectious Disease History: No Infectious Disease History: Denies: Traveled Outside the [place] in Last 30 Days - Family History Family History: No family history of malignant hypertherima or anesthesia reaction. - Social History Occupation: Disabled Lives: With Family Alcohol Use: None Hx Substance Use: No Substance Use Type: Reports: None Hx Tobacco Use: Yes Smoking Status (MU): Heavy Every Day Tobacco Smoker Amount Used/How Often: 1 ppd Have You Smoked in the Last Year: Yes Review of Systems Negative: Fever Eyes: Negative Positive: Nausea Neurological: Other - pos: dizziness Positive: Headache All Other Systems Reviewed And Are Negative: Yes Physical Exam - Summary Physical Exam Summary: VITAL SIGNS: Reviewed. GENERAL: Patient is a well-developed and nourished MALE who is lying comfortable in the stretcher. Patient is not in any acute respiratory distress. HEAD AND FACE: No signs of trauma. No ecchymosis, hematomas or skull depressions. No sinus tenderness. EYES: PERRLA, EOMI x 2, No injected conjunctiva, no nystagmus. No dysmetria. EARS: Hearing grossly intact. Ear canals and tympanic membranes are within normal limits. MOUTH: Oropharynx within normal limits. NECK: Supple, trachea is midline, no adenopathy, no JVD, no carotid bruit, no c- spine tenderness, neck with full ROM. CHEST: Symmetric, no tenderness at palpation LUNGS: Clear to auscultation bilaterally. No wheezing or crackles. CVS: Regular rate and rhythm, S1 and S2 present, no murmurs or gallops appreciated. ABDOMEN: Soft, non-tender. No signs of distention. No rebound no guarding, and no masses palpated. Bowel sounds are normal. EXTREMITIES: FROM in all major joints, no edema, no cyanosis or clubbing. Coordination intact. NEURO: Alert and oriented x 3. No acute neurological deficits. Speech is normal and follows commands. SKIN: Dry and warm Triage Information Reviewed: Yes Vital Signs On Initial Exam: Initial Vitals Temp Pulse Resp BP Pulse Ox 98.4 F 84 16 120/74 96 08/05/18 16:13 08/05/18 16:13 08/05/18 16:13 08/05/18 16:13 08/05/18 16:13 Vital Signs Reviewed: Yes Diagnostics - Vital Signs Vital Signs Temp Pulse Resp BP Pulse Ox 08/05/18 19:02 88 14 121/75 98 08/05/18 19:00 71 17 96 08/05/18 18:31 71 12 118/75 95 08/05/18 18:13 76 17 96 08/05/18 18:02 73 11 135/79 95 08/05/18 16:13 98.4 F 84 16 120/74 96 - Laboratory Lab Results: Lab Results 08/05/18 08/05/18 Range/Units 17:46 17:46 WBC 8.6 (3.5-10.8) 10^3/ul RBC 5.35 (4.00-5.40) 10^6/ul Hgb 15.8 (14.0-18.0) g/dl Hct 47 (42-52) % MCV 87 (80-94) fL MCH 30 (27-31) pg MCHC 34 (31-36) g/dl RDW 13 (10.5-15) % Plt Count 165 (150-450) 10^3/ul MPV 8.2 (7.4-10.4) um3 Neut % (Auto) 72.5 (38-83) % Lymph % (Auto) 19.1 L (25-47) % [place] % (Auto) 6.6 (0-7) % Eos % (Auto) 0.8 (0-6) % Baso % (Auto) 1.0 (0-2) % Absolute Neuts (auto) 6.2 (1.5-7.7) 10^3/ul Absolute Lymphs (auto) 1.6 (1.0-4.8) 10^3/ul Absolute Monos (auto) 0.6 (0-0.8) 10^3/ul Absolute Eos (auto) 0.1 (0-0.6) 10^3/ul Absolute Basos (auto) 0.1 (0-0.2) 10^3/ul Absolute Nucleated RBC 0 10^3/ul Nucleated RBC % 0.2 Sodium 138 (135-145) mmol/L Potassium 4.4 (3.5-5.0) mmol/L Chloride 104 (101-111) mmol/L Carbon Dioxide 30 (22-32) mmol/L Anion Gap 4 (2-11) mmol/L BUN 16 (6-24) mg/dL Creatinine 1.07 (0.67-1.17) mg/dL Est GFR ( Amer) 86.5 (>60) Est GFR (Non-Af Amer) 71.5 (>60) BUN/Creatinine Ratio 15.0 (8-20) Glucose 92 (70-100) mg/dL Calcium 9.4 (8.6-10.3) mg/dL Result Diagrams: 08/05/18 17:46 08/05/18 17:46 Lab Statement: Any lab studies that have been ordered have been reviewed, and results considered in the medical decision making process. Re-Evaluation - Re-Evaluation 1 Re-Evaluation Time: 19:54 Change: Improved Comment: Patient feels better after medication. He stood up and sat up without symptoms. Pt advised to follow up with ENT and to take Meclizine 25mg every 6 hours. Dizzy Course/Dx - Course Course Of Treatment: Pt is a 57 y/o M with prev episodes of vertigo for past 6 months presenting with dizziness today at 1315 which lasted 15 minutes. Physical found extremity coordination intact and no ocular dysmetria. Bloodwork is unremarkable. Upon reeval, after medication, pt is feeling improved. Will D/ C home, advised pt to f/u with ENT and to take 25mg Meclizine every 6 hours. - Diagnoses Provider Diagnoses: Benign positional vertigo Discharge - Sign-Out/Discharge Documenting (check all that apply): Patient Departure - DC - Discharge Plan Condition: Stable Disposition: HOME Patient Education Materials: Meclizine (By mouth), Benign Paroxysmal Positional Vertigo (ED) Referrals: Josh Castro MD [Primary Care Provider] - 2 Days Manfred Monsalve MD [Medical Doctor] - 2 Days Additional Instructions: RETURN TO THE EMERGENCY DEPARTMENT FOR CHANGING OR WORSENING SYMPTOMS. As we discussed: Follow up with your primary care provider and Dr. Monsalve ENT, in 2-3 days. Take 25 mg Meclizine every 6 hours. - Attestation Statements Document Initiated by Scribe: Yes Documenting Scribe: Solomon Phipps Provider For Whom Scribe is Documenting (Include Credential): Dr. Eugenia Alexandre MD Scribe Attestation: Solomon Raymond, scribed for Dr. Eugenia Alexandre MD on 08/05/18 at 2002.
[2018-08-05] MEDS ORDERED: Ondansetron INJ* 2 MG/ML VIAL IV ONE (19:29)
[2018-08-05 20:19] VITALS: BP 110/66
== END 2018-08-05 20:18 | disposition home or self-care (01) ==
LOC: ED 16:00
DX: H81.10 Benign paroxysmal vertigo, unspecified ear (principal); Z72.0 Tobacco use
CPT/HCPCS: 36415; 80048; 85025; 96361; 96374; 96375; 99283; J1240; J2405